=== PATIENT | female | born 1995 | race American Indian/Alaskan Native ===

== ENCOUNTER 2018-12-01 12:52 | Emergency (ER) | payer OTHER, MEDICAID ==
[2018-12-01] MEDS ORDERED: MORPHINE IV ONE (13:24)
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
[2018-12-01] MEDS ORDERED: PERCOCET 5/325 PO ONE (15:41)
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
[2018-12-01] MEDS ORDERED: ZOFRAN ODT PO ONE (17:39)
[2018-12-01 17:52] VITALS: BP 110/62
== END 2018-12-01 17:50 | disposition home or self-care (01) ==
LOC: ED 12:52
DX: S09.90XA Unspecified injury of head, initial encounter (principal); F41.9 Anxiety disorder, unspecified; Z79.1 Long term (current) use of non-steroidal anti-inflammatories (NSAID); Z88.5 Allergy status to narcotic agent; Z79.899 Other long term (current) drug therapy; V49.59XA Passenger injured in collision with other motor vehicles in traffic accident, initial encounter; Y93.89 Activity, other specified; Y92.488 Other paved roadways as the place of occurrence of the external cause; Y99.8 Other external cause status
CPT/HCPCS: 70450; 96374; 99284; J2270; Q0162

== ENCOUNTER 2019-07-31 09:03 | Outpatient (CLI) | payer OTHER | END 2019-07-31 11:46 | disposition home or self-care (01) | LOC: TRG 09:03 → LAB 09:03 → TRG 11:00 | PROVIDERS: ATTEND Obstetrics & Gynecology | DX: O26.893 Other specified pregnancy related conditions, third trimester (principal); Z3A.35 35 weeks gestation of pregnancy; Z67.41 Type O blood, Rh negative | CPT/HCPCS: 59025; 86850; 86900; 86901; 96372; J2790 ==